=== PATIENT | male | born 1990 | race Caucasian/White ===

== ENCOUNTER 2019-05-29 08:26 | Emergency (ER) | payer MEDICAID ==
[~2019-05-29] VITALS: Ht 165.1 cm; Wt 82.9 kg
[2019-05-29 08:59] LABS: CLARITY,URINE CLEAR (Clear); COLOR,URINE YELLOW (Yellow); GLUCOSE, URINE NEGATIVE (Neg); KETONES,URINE 15 mg/dl (Neg); LEUKOCYTE ESTERASE ,URINE NEGATIVE (Neg); NITRITES, URINE NEGATIVE (Neg); OCCULT BLOOD,URINE NEGATIVE (Neg); PH,URINE 6.5 (4.8-8.0); PROTEIN,URINE NEGATIVE (Neg); UROBILINOGEN,URINE 0.2 E.U/dL (0.2-1.0)
[2019-05-29 09:05] LABS: URINE AMPHETAMINE SCREEN NEGATIVE (Neg); URINE BARBITUATE SCREEN NEGATIVE (Neg); URINE BENZODIAZEPINES SCREEN NEGATIVE (Neg); URINE CANNABINOID SCREEN NEGATIVE (Neg); URINE COCAINE SCREEN NEGATIVE (Neg); URINE METHADONE SCREEN NEGATIVE (Neg); URINE OPIATE SCREEN NEGATIVE (Neg); URINE PHENCYCLIDINE SCREEN NEGATIVE (Neg)
[2019-05-29 09:09] LABS: BASOPHILS % (AUTO) 0.2 % (0-1); EOSINOPHILS # (AUTO) 0.1 X10'3 (0-0.9); EOSINOPHILS % (AUTO) 1.2 % (0-6); HEMATOCRIT 41.5 % (42.0-52.0); HEMOGLOBIN 14.5 g/dl (14.0-17.9); LYMPHOCYTES # (AUTO) 1.2 X10'3 (1.1-4.8); LYMPHOCYTES % (AUTO) 19.9 % (21-51); MEAN CORPUSCULAR HEMOGLOBIN 33.6 PG (27.0-31.0); MEAN PLATELET VOLUME 6.7 FL (7.4-10.4); MONOCYTES # (AUTO) 0.6 X10'3 (0-0.9); MONOCYTES % (AUTO) 10.4 % (2-12); NEUTROPHILS # (AUTO) 4.2 X10'3 (1.8-7.7); NEUTROPHILS % (AUTO) 68.3 % (42-75); PLATELET COUNT 186 X10'3 (140-440); RED BLOOD COUNT 4.32 X10'6 (4.70-6.10); RED CELL DISTRIBUTION WIDTH 13.6 % (11.5-14.5); WHITE BLOOD COUNT 6.1 X10'3 (4.5-11.0)
[2019-05-29 09:22] LABS: UA COLLECTION TYPE CLN CATCH MIDSTREAM
[2019-05-29 09:24] LABS: ALANINE AMINOTRANSFERASE 166 U/L (12-78); ALKALINE PHOSPHATASE 80 IU/L (46-116); ANION GAP 12 (8-16); ASPARTATE AMINO TRANSFERASE 67 U/L (10-37); BILIRUBIN,TOTAL 0.5 MG/DL (0.1-1.0); BLOOD UREA NITROGEN 12 MG/DL (7-18); BUN/CREATININE RATIO 14.1 (5.4-32.0); CALCIUM 8.7 MG/DL (8.5-10.1); CHLORIDE 103 MMOL/L (99-107); CREATININE 0.85 MG/DL (0.60-1.10); GLUCOSE 99 MG/DL (70-104); POTASSIUM 3.5 MMOL/L (3.5-5.1); SODIUM 140 MMOL/L (135-145); TOTAL CARBON DIOXIDE 25.4 MMOL/L (24-32); TOTAL PROTEIN 7.9 G/DL (6.4-8.2); eGFR > 90 ML/MIN
[2019-05-29 09:34] LABS: ETHANOL 0.018 GM/DL (0.0-0.010)
[2019-05-29 09:50] LABS: ACETAMINOPHEN < 2.0 UG/ML (10-30); VALPROATE < 3.0 UG/ML (50-100)
[2019-05-29] MEDS ORDERED: LITH300C PO (15:27)
[2019-05-29] MEDS ORDERED: GABA-534 PO (15:27)
[2019-05-29] MEDS ORDERED: QUET-1 PO (15:27)
--- NOTE | 2019-05-29 21:52 | NUR ---
pt moved from ed 16 to of 25 via wheelchair. pt was steady on feet when transferring to . pt is calm and cooperative but asked to be allowed to sleep.
[2019-05-29] MEDS: gabapentin 400mg capsule PO SCH (22:41)
[2019-05-29] MEDS: quetiapine 100mg tablet PO SCH (22:41)
[2019-05-29] MEDS: lithium carbonate 150mg capsule PO SCH (22:42)
--- NOTE | 2019-05-29 23:55 | NUR ---
pt continues to sleep, rr unlabored, no s/s of distress noted.
--- NOTE | 2019-05-30 03:48 | NUR ---
pt is sleeping, rr unlabored, no s/s of distress noted.
--- NOTE | 2019-05-30 07:54 | NUR ---
PT CONTINUES TO SLEEP, RR UNLABORED.
[2019-05-30] MEDS: gabapentin 400mg capsule PO SCH ×3 (08:04→20:59)
[2019-05-30] MEDS: lithium carbonate 150mg capsule PO SCH ×2 (08:04→20:59)
--- NOTE | 2019-05-30 08:43 | NUR ---
PT ATE BREAKFAST AND THEN WENT BACK TO SLEEP
--- NOTE | 2019-05-30 10:38 | NUR ---
pt continues to sleep, rr unlabored.
--- NOTE | 2019-05-30 13:06 | NUR ---
LUNCH TRAY PLACED AT BEDSIDE BY OSMANY WILLOUGHBY.
--- NOTE | 2019-05-30 13:15 | NUR ---
PATIENT ATE 100 % OF LUNCH. PATIENT STATES THAT HE IS EAGER TO GET THE HELP THAT HE NEEDS.
--- NOTE | 2019-05-30 13:27 | NUR ---
REPORT TO LESLIE NICHOLAS
--- NOTE | 2019-05-30 13:27 | NUR ---
REPORT FROM NICCI AT 1215: PATIENT AOEARS TO BE SLEEPING ON HIS BACK
--- NOTE | 2019-05-30 13:30 | NUR ---
RECEIVED REPORT FROM CRISTOPHER FUNG. PT. SITTING AT SIDE OF BED. EVELYNE VASQUEZ.
--- NOTE | 2019-05-30 15:04 | NUR ---
REPORT GIVEN TO KADI CABELLO RN. PT. RESTING WITH EYES CLOSED.
--- NOTE | 2019-05-30 15:18 | NUR ---
LIN FROM [facility] CALLED BACK ASKING FOR VS, UPDATED PT VS NOT UPDATED THIS MORNING AND INFORMED LIN OF CURRENT SET OF VS
--- NOTE | 2019-05-30 15:44 | NUR ---
RECEIVED CALL FROM [facility] OFFICE PT ACCEPTED AT 1415 TO [facility] NI[facility]O, INFORMATION TECHNOLOGY ADVISOR TO GET PT AT 2200 TONIGHT.
--- NOTE | 2019-05-30 16:00 | NUR ---
PATIENT UP AND WALKING AND LOOKING FOR A BOOK AND A MAGAZINE TO READ
--- NOTE | 2019-05-30 17:06 | NUR ---
PATIENT CONTINUES TO DENY SI/HI
--- NOTE | 2019-05-30 18:40 | NUR ---
PATIENT ATE ALL OF DINNER AND HE IS WELCOMING GOING TO A TREATMENT FACILITY
--- NOTE | 2019-05-30 20:00 | NUR ---
PATIENT READING HIS BOOK LAYING IN BED CALM
[2019-05-30] MEDS: quetiapine 100mg tablet PO SCH (20:57)
--- NOTE | 2019-05-30 22:30 | NUR ---
[facility] HERE TO [facility] [employer] [facility] PATIENT FOR TRANSFER TO [facility]. PATIENT LEFT WITH ALL HIS BELONGINGS. PATIENT AGAIN STATED THAT HE IS HAPPY TO GET THE HELP HE NEEDS
[2019-05-31 00:14] VITALS: BP 125/64
== END 2019-05-29 22:30 ==
LOC: ER 08:26
DX: F31.9 Bipolar disorder, unspecified (principal); R45.851 Suicidal ideations; Z86.19 Personal history of other infectious and parasitic diseases; Z59.0 Homelessness; Z79.899 Other long term (current) drug therapy
CPT/HCPCS: 36415; 80053; 80164; 80178; 80305; 80320; 80329; 81003; 84443; 85025; 99285

== ENCOUNTER 2019-08-25 22:00 | Emergency (ER) | payer MEDICAID ==
[~2019-08-25] VITALS: Ht 167.6 cm; Wt 84.1 kg
[~2019-08-25 22:00] MED LIST: GABA-534 PO; LITH300C PO; QUET-1 PO
[2019-08-25 22:06] VITALS: BP 141/85
--- NOTE | 2019-08-25 22:09 | NUR ---
Pt. guarded and hesitates to answer any futher questions during triage. He states "I don't want to keep repeating myself over and over." Security on standby at this time.
--- NOTE | 2019-08-25 22:38 | NUR ---
Attempted to assess Pt. Pt refused to answer questions and became aggressive toward staff. Security was on standby outside room. Pt became vocally disruptive and not cooperating with process. Pt walked out of ED followed by security and staff. Staff attempted to get Pt to stay for eval, Pt refused and continued walking.
--- NOTE | 2019-08-25 22:45 | NUR ---
[facility] NOTIFIED OF PT'S REPORT AND BEHAVIOR. THEY WERE GIVEN A DISCRIPTION OF PT'S WEIGHT, HEIGHT AND COLOR OF CLOTHES.
[2019-08-26] MEDS ORDERED: LURA60TA2 PO (06:21)
== END 2019-08-25 22:53 | disposition left against medical advice (07) ==
LOC: ER 22:01
DX: R45.851 Suicidal ideations (principal); F31.9 Bipolar disorder, unspecified; Z86.19 Personal history of other infectious and parasitic diseases; Z72.89 Other problems related to lifestyle; Z59.0 Homelessness; Z79.899 Other long term (current) drug therapy
CPT/HCPCS: 99281

== ENCOUNTER 2019-08-26 01:37 | Emergency (ER) | payer MEDICAID ==
[~2019-08-26] VITALS: Ht 167.6 cm; Wt 84.1 kg
--- NOTE | 2019-08-26 01:48 | NUR ---
pt states he returned back here tonight because "i was looking for the other hospital and couldnt find it"
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
[2019-08-26 02:41] LABS: BASOPHILS % (AUTO) 0.1 % (0-1); EOSINOPHILS # (AUTO) 0.2 X10'3 (0-0.9); HEMATOCRIT 46.1 % (42.0-52.0); HEMOGLOBIN 15.7 g/dl (14.0-17.9); LYMPHOCYTES # (AUTO) 2.4 X10'3 (1.1-4.8); MEAN CORPUSCULAR HEMOGLOBIN 32.8 PG (27.0-31.0); MEAN CORPUSCULAR HGB CONC 34.1 g/dL (33.0-36.5); MEAN CORPUSCULAR VOLUME 96.2 FL (78-98); MEAN PLATELET VOLUME 7.2 FL (7.4-10.4); MONOCYTES # (AUTO) 0.6 X10'3 (0-0.9); MONOCYTES % (AUTO) 5.5 % (2-12); NEUTROPHILS # (AUTO) 7.1 X10'3 (1.8-7.7); NEUTROPHILS % (AUTO) 69.4 % (42-75); PLATELET COUNT 236 X10'3 (140-440); RED CELL DISTRIBUTION WIDTH 15.4 % (11.5-14.5); WHITE BLOOD COUNT 10.2 X10'3 (4.5-11.0)
[2019-08-26 02:42] LABS: CLARITY,URINE CLOUDY (Clear); COLOR,URINE YELLOW (Yellow); GLUCOSE, URINE NEGATIVE (Neg); KETONES,URINE NEGATIVE (Neg); LEUKOCYTE ESTERASE ,URINE NEGATIVE (Neg); NITRITES, URINE NEGATIVE (Neg); OCCULT BLOOD,URINE NEGATIVE (Neg); PH,URINE 5.5 (4.8-8.0); PROTEIN,URINE NEGATIVE (Neg); UROBILINOGEN,URINE 0.2 E.U/dL (0.2-1.0)
[2019-08-26 02:49] LABS: URINE AMPHETAMINE SCREEN POSITIVE (Neg); URINE BARBITUATE SCREEN NEGATIVE (Neg); URINE BENZODIAZEPINES SCREEN NEGATIVE (Neg); URINE CANNABINOID SCREEN NEGATIVE (Neg); URINE COCAINE SCREEN NEGATIVE (Neg); URINE METHADONE SCREEN NEGATIVE (Neg); URINE OPIATE SCREEN NEGATIVE (Neg); URINE PHENCYCLIDINE SCREEN NEGATIVE (Neg)
--- NOTE | 2019-08-26 02:51 | NUR ---
Patient came into ER yesterday with a S/I complaint but elopeted. Patient returned tonight and stated he was S/I. Patient states he is homeless. Patient states he bought a gun on the streets with an intent to shoot himself. Patient called his brother in [place], he states the brother came to [place] and took the gun back to [place] with him. 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 Many atempts at rehab, seen at many mental health hospitals. Patient admits to ETOH prior to coming in to the ED tonight. Patient states he also smoked some meth. Patients thoughts are linear. He is well groomed and clean. Patient makes direct eye contact and speaks in a normal voice. Patient placed on bed 22. Labs are pending.
[2019-08-26 02:52] LABS: ALANINE AMINOTRANSFERASE 123 U/L (12-78); ALBUMIN 4.4 G/DL (3.4-5.0); ALBUMIN/GLOBULIN RATIO 1.1 (1.1-1.5); ALKALINE PHOSPHATASE 62 IU/L (46-116); ANION GAP 12 (8-16); ASPARTATE AMINO TRANSFERASE 61 U/L (10-37); BILIRUBIN,TOTAL 0.3 MG/DL (0.1-1.0); BLOOD UREA NITROGEN 16 MG/DL (7-18); BUN/CREATININE RATIO 14.7 (5.4-32.0); CALCIUM 8.5 MG/DL (8.5-10.1); CHLORIDE 105 MMOL/L (99-107); CREATININE 1.09 MG/DL (0.60-1.10); GLUCOSE 78 MG/DL (70-104); POTASSIUM 3.6 MMOL/L (3.5-5.1); SODIUM 142 MMOL/L (135-145); TOTAL CARBON DIOXIDE 24.9 MMOL/L (24-32); TOTAL PROTEIN 8.3 G/DL (6.4-8.2); UA COLLECTION TYPE CLN CATCH MIDSTREAM; eGFR 79 ML/MIN
[2019-08-26 02:53] LABS: AMORPHOUS URATES 3+; BACTERIA,URINE FEW /HPF (Neg); RBC,URINE NONE SEEN /HPF (0-2); SQUAMOUS EPITHELIAL CELL,UR FEW /LPF (FEW); WBC,URINE NONE SEEN /HPF (0-4)
[2019-08-26 03:01] LABS: ETHANOL 0.175 GM/DL (0.0-0.010)
[2019-08-26] MEDS ORDERED: LURA60TA2 PO (06:21)
--- NOTE | 2019-08-26 06:52 | NUR ---
pt up walking around used bathroom asked if he could get a sleeping pill informed him it was 6 am and we do not hand out sleeping pills in the morning but we can try to get him one for macario
[2019-08-26] MEDS: gabapentin 400mg capsule PO SCH ×2 (07:59→12:45)
[2019-08-26] MEDS ORDERED: lithium carbonate 300mg SR tablet (LithoBID) PO SCH (08:00)
[2019-08-26] MEDS ORDERED: lurasidone 60mg tablet PO SCH (08:00)
--- NOTE | 2019-08-26 08:10 | NUR ---
pt awake ate breakfast and took morning meds has been up to the bathroom ambulates with steady gate. has not asked for sleeping pill again
--- NOTE | 2019-08-26 08:24 | NUR ---
Hiren garcia in [facility] - 08/26/19 at 0825 by [facility] psychosocial assessment underway.
--- NOTE | 2019-08-26 09:31 | NUR ---
in bed resting still getting up to use bathroom often
--- NOTE | 2019-08-26 12:10 | NUR ---
[facility] at bed side talking to pt
--- NOTE | 2019-08-26 14:51 | NUR ---
in bed resting postion changes noted rise and fall of chest seen no out burst or suicide threat
--- NOTE | 2019-08-26 16:13 | NUR ---
resting in bed no changes at this time
--- NOTE | 2019-08-26 16:35 | NUR ---
[facility] called asking about pt report on pt given
--- NOTE | 2019-08-26 17:03 | NUR ---
pt has been accepted at [facility] at 1645 by JAMIR Torres brass pickler time will be around 1800
--- NOTE | 2019-08-26 17:15 | NUR ---
relieving RN for break, pt is resting quietly on bed
[2019-08-26 18:23] VITALS: BP 103/97
== END 2019-08-26 18:27 ==
LOC: ER 01:38
DX: R45.851 Suicidal ideations (principal); F10.129 Alcohol abuse with intoxication, unspecified; F31.9 Bipolar disorder, unspecified; Z86.19 Personal history of other infectious and parasitic diseases; Z59.0 Homelessness; Z79.899 Other long term (current) drug therapy; Y90.0 Blood alcohol level of less than 20 mg/100 ml
CPT/HCPCS: 36415; 80053; 80305; 80320; 81001; 84443; 85025; 99285